=== PATIENT | male | born 1960 | race American Indian/Alaskan Native ===

== ENCOUNTER 2021-09-10 09:27 | Day surgery (SDC) | payer OTHER ==
[2021-09-10] MEDS ORDERED: LACTATED RINGERS 1,000 ML ONE (09:55)
[2021-09-10] MEDS ORDERED: ceFAZolin/STERILE WATER 2 GM/20 ML SYRINGE IV NR (10:00)
[2021-09-10] MEDS ORDERED: ceFAZolin/Water 2 GM/20 ML 2 GM/20 ML SYRINGE IV ONE (10:51)
--- NOTE | 2021-09-10 11:21 | Anesthesia Day of Surgery ---
Anesthesia Day of Surgery - Day of Surgery Patient Examined: Yes Patient H&P Reviewed: Yes Patient is NPO: Yes
--- NOTE | 2021-09-10 11:23 | Anesthesia Consultation ---
Anesthesia Consult and Med Hx Date of service: 09/10/21 - Airway Anesthetic Teeth Evaluation: Good ROM Head & Neck: Adequate Mental/Hyoid Distance: Adequate Mallampati Class: Class II Intubation Access Assessment: Good - Pre-Operative Health Status ASA Pre-Surgery Classification: ASA2 Proposed Anesthetic Plan: General - Pulmonary Hx Smoking: No Hx Respiratory Symptoms: No (+2FS) Hx Sleep Apnea: No (Pt reports negative sleep study) - Cardiovascular System Hx Hypertension: Yes - Gastrointestinal Hx Gastroesophageal Reflux Disease: Yes (Dietary rare) - Endocrine Hx Non-Insulin Dependent Diabetes: Yes (PRE/Diet-controlled) - Hematic Hx Sickle Cell Disease: No - Other Systems Hx Obesity: Yes
[2021-09-10] MEDS ORDERED: LACTATED RINGERS 1,000 ML IV SCH (11:30)
[2021-09-10] MEDS ORDERED: HYDROmorphone 0.5 MG/0.5 ML INJ IV PRN ×2 (11:30)
[2021-09-10] MEDS ORDERED: ONDANSETRON 4 MG/2 ML INJ IV PRN (11:30)
[2021-09-10] MEDS ORDERED: MIDAZOLAM 2 MG/2 ML INJ IV NR (12:00)
[2021-09-10] MEDS ORDERED: propofoL 200 MG/20 ML VIAL IV ONE (12:58)
[2021-09-10] MEDS ORDERED: fentaNYL 100 MCG/2 ML INJ ONE ×2 (12:58→13:32)
[2021-09-10] MEDS ORDERED: MIDAZOLAM 2 MG/2 ML INJ ONE (12:58)
--- NOTE | 2021-09-10 13:05 | Post Operative Note ---
Date of procedure: 09/10/21 Pre-op diagnosis: blat recurrent hydroceles Post-op diagnosis: same Findings: same as above Procedure: bilateral hydrocelectomy Anesthesia: GETA Surgeon: QUINN STEWART Estimated blood loss: minimal Pathology: list (sac) Specimen disposition: to lab Condition: stable Disposition: PACU
--- NOTE | 2021-09-10 13:06 | Discharge Summary ---
Short Stay Discharge Plan Activity: other (no straining ) Diet: low fat, low cholesterol, low salt Wound: change dressing Special Instructions: other (ice x 24 hrs ) Durable Medical Equipment Needed Upon Discharge: other (icepacks ) Follow up with: [facility] [Primary Care Provider] - 7 Days QUINN STEWART MD [Staff Physician] - 09/15/21
[2021-09-10] MEDS ORDERED: ePHEDrine SULFATE 50 MG/1 ML INJ ONE (13:25)
[2021-09-10] MEDS ORDERED: ONDANSETRON 4 MG/2 ML INJ ONE (13:33)
[2021-09-10] MEDS ORDERED: KETOROLAC 30 MG/1 ML INJ ONE (13:33)
[2021-09-10] MEDS ORDERED: dexAMETHasone 20 MG/5 ML VIAL ONE (13:33)
[2021-09-10] MEDS ORDERED: SODIUM CHLORIDE 0.9% IRR 1,500 ML BOTTLE IR ONE (14:30)
--- NOTE | 2021-09-10 15:16 | Operative Report ---
DATE OF SURGERY: 09/10/2021 PREOPERATIVE DIAGNOSIS: Recurrent huge hydroceles. POSTOPERATIVE DIAGNOSIS: Recurrent huge hydroceles. PROCEDURE: Bilateral hydrocelectomy. SURGEON: Arvin Jimenez MD ANESTHESIA: General. FINDINGS: This is a gentleman with very large hydrocele. It is much larger on the right than the left. These are recurrent. He has had surgery short time ago at the [facility]. He is having pain. DESCRIPTION OF PROCEDURE: The patient was brought to the operating room and placed on the operating table. Following induction of anesthesia, placed in supine position, prepped and draped in usual sterile fashion. The right side was done first. An oblique incision made over the hemiscrotum. Lots of scarring from the fascia and thickened fascia. Once we got to the tunica vaginalis, about 200 mL at least of clear fluid was obtained. The large sac was excised and imbricated. The patient tolerated the procedure well. A drain was placed in the dependent portion of the scrotum. Irrigation was applied. The closure was accomplished with 3-0 and 2-0 chromics on the right side. In a similar fashion, the left side was incised. There was only about 100 mL of clear fluid on the left side. Large amount of sac was excised and imbricated. Incision was closed with 2-0 and 3-0 chromic after a drain was placed on the left side as well. The patient tolerated the procedure well. He knows he will have the drain for quite a few days. Hopefully, that will lead to scarring then it will not recur. The patient tolerated the procedure well. Prescriptions were called in last week. He was brought to recovery room in stable condition. Minimal blood loss. TID: [id number] RECEIPT: [id number] JU/ELMA
[2021-09-10 16:03] VITALS: BP 130/71
--- NOTE | 2021-09-10 16:06 | Post Anesthesia Evaluation ---
- Post Anesthesia Evaluation Patient Participated: Yes Airway Patent: Yes Stable Respiratory Function: Yes Nausea/Vomiting: No Temp > 96.8F: Yes Pain Manageable: Yes Adequeate Hydration: Yes Anesthesia Complications: No Block Receding Appropriately: Not Applicable Patient on Ventilator: No
== END 2021-09-10 16:34 | disposition home or self-care (01) ==
LOC: OR 09:27
PROVIDERS: ATTEND Urology
DX: N43.2 Other hydrocele (principal); I10 Essential (primary) hypertension; K21.9 Gastro-esophageal reflux disease without esophagitis; E66.9 Obesity, unspecified; N49.8 Inflammatory disorders of other specified male genital organs; E78.00 Pure hypercholesterolemia, unspecified; E11.9 Type 2 diabetes mellitus without complications; Z79.899 Other long term (current) drug therapy; Z87.891 Personal history of nicotine dependence; Z68.41 Body mass index [BMI] 40.0-44.9, adult
CPT/HCPCS: 55041; 82962; 88302; J0690; J1100; J1885; J2250; J2405; J2704; J3010; J3490; J7120